=== PATIENT | male | born 1985 | race Caucasian/White ===

== ENCOUNTER 2022-05-26 08:07 | Emergency (ER) | payer SELFPAY ==
[2022-05-26 08:53] LABS: #Basophils 0.1 thou/uL (0.0-0.2); #Eosinphils 0.1 thou/uL (0.0-0.7); #Lymphocytes 3.1 thou/uL (1.20-3.40); #Monocytes 0.6 thou/uL (0.11-0.59); #Neutrophils 4.3 thou/uL (1.40-6.50); %Eosinophils 1.8 % (0.0-10.0); %Lymphocytes 37.4 % (21.0-51.0); %Monocytes 7.4 % (0.0-10.0); %Neutrophils 52.5 % (42.0-75.0); Hemoglobin 14.4 g/dL (14.0-18.0); Mean Corpuscular Hemoglobin 34.2 pg (27.0-31.0); Mean Platelet Volume 7.7 fL (7.4-10.4); Platelet Count 183 thou/uL (130-400); RBC Distribution Width 11.4 % (11.5-14.5); Red Blood Cell (RBC) Count 4.22 mill/uL (4.70-6.10); White Blood Cell (WBC) Count 8.2 thou/uL (4.8-10.8)
[2022-05-26] MEDS ORDERED: Iopamidol 370 76% 100 ML VIAL ONE (09:00)
[2022-05-26 09:02] LABS: ALT (SGPT) 37 U/L (8-55); AST (SGOT) 30 U/L (5-34); Albumin 4.1 g/dL (3.5-5.0); Alkaline Phosphatase 85 U/L (40-110); Anion Gap 15 mmol/L (10-20); BUN (Urea Nitrogen) 5 mg/dL (8.9-20.6); Bilirubin, Total 0.8 mg/dL (0.2-1.2); CK (CPK) 44 U/L (30-200); Calc. Creatinine Clearance 0 mL/min (70-130); Calcium 9.1 mg/dL (7.8-10.44); Carbon Dioxide 26 mmol/L (22-29); Chloride 98 mmol/L (98-107); Estimated GFR 118; Globulin 3.5 g/dL (2.4-3.5); Glucose 85 mg/dL (70-105); Lipase 108 U/L (8-78); Potassium 3.1 mmol/L (3.5-5.1); Protein, Total 7.6 g/dL (6.0-8.3); Sodium 136 mmol/L (136-145)
[2022-05-26 09:04] LABS: MDiff Complete? YES; Macrocytosis SLIGHT = 6-15 cells (100X) (0-5/hpf); Platelet Morphology Comment Appears Adequate
[2022-05-26] MEDS ORDERED: Dicyclomine 20 MG/2 ML VIAL ONE (09:59)
[2022-05-26] MEDS ORDERED: Lidocaine Viscous Sol 2% 15 ml UD Cup ONE (09:59)
[2022-05-26] MEDS ORDERED: Mag-Al Plus 1200 MG/1200 MG/120 MG/30 ML UDCUP ONE (09:59)
[2022-05-26] MEDS ORDERED: Sodium Chloride 0.9% 1,000 ML ONE (09:59)
== END 2022-05-26 10:40 | disposition home or self-care (01) ==
LOC: NAV ERS 08:07
DX: R10.13 Epigastric pain (principal); R10.11 Right upper quadrant pain; F17.210 Nicotine dependence, cigarettes, uncomplicated
CPT/HCPCS: 36415; 74177; 80053; 82550; 83690; 85025; 93005; 96372; J7050; Q9967

== ENCOUNTER 2022-08-05 06:20 | Emergency (ER) | payer SELFPAY ==
[2022-08-05] MEDS ORDERED: Morphine 4 MG/ML VIAL ONE ×2 (06:52→10:28)
[2022-08-05] MEDS ORDERED: Ondansetron PF 4 MG/2 ML Vial ONE (06:52)
[2022-08-05] MEDS ORDERED: Sodium Chloride 0.9% 1,000 ML ONE (06:52)
[2022-08-05 07:04] LABS: #Basophils 0.1 thou/uL (0.0-0.2); #Eosinphils 0.1 thou/uL (0.0-0.7); #Lymphocytes 1.7 thou/uL (1.20-3.40); #Monocytes 0.6 thou/uL (0.11-0.59); #Neutrophils 2.8 thou/uL (1.40-6.50); %Basophils 1.7 % (0.0-1.0); %Eosinophils 1.4 % (0.0-10.0); %Lymphocytes 32.8 % (21.0-51.0); %Monocytes 10.6 % (0.0-10.0); %Neutrophils 53.5 % (42.0-75.0); Hemoglobin 13.7 g/dL (14.0-18.0); Mean Corpuscular HGB CONC 33.7 g/dL (32.0-36.0); Mean Corpuscular Hemoglobin 34.4 pg (27.0-31.0); Mean Platelet Volume 6.4 fL (7.4-10.4); Platelet Count 293 thou/uL (130-400); Red Blood Cell (RBC) Count 3.98 mill/uL (4.70-6.10); White Blood Cell (WBC) Count 5.2 thou/uL (4.8-10.8)
[2022-08-05 07:11] LABS: ALT (SGPT) 36 U/L (8-55); AST (SGOT) 48 U/L (5-34); Albumin 3.6 g/dL (3.5-5.0); Alcohol 135 mg/dL (Less than 10); Alkaline Phosphatase 71 U/L (40-110); Anion Gap 18 mmol/L (10-20); BUN (Urea Nitrogen) 10 mg/dL (8.9-20.6); Bilirubin, Total 0.6 mg/dL (0.2-1.2); Calc. Creatinine Clearance 0 mL/min (70-130); Calcium 8.3 mg/dL (7.8-10.44); Carbon Dioxide 28 mmol/L (22-29); Chloride 99 mmol/L (98-107); Estimated GFR 80; Globulin 3.5 g/dL (2.4-3.5); Glucose 123 mg/dL (70-105); Lipase 148 U/L (8-78); Protein, Total 7.1 g/dL (6.0-8.3); Sodium 142 mmol/L (136-145)
[2022-08-05 07:16] LABS: Potassium 2.7 mmol/L (3.5-5.1)
[2022-08-05 07:18] LABS: Anisocytosis MODERATE=16-30 cells (100X) (0-5/hpf); Macrocytosis SLIGHT = 6-15 cells (100X) (0-5/hpf); Platelet Morphology Comment Appears Adequate; Polychromasia SLIGHT = 2-3 cells (100X) (0-2/hpf); Schistocytes SLIGHT = 2-5 cells (100X) (0-1/hpf); Target Cells SLIGHT = 2-5 cells (100X) (0-1/hpf)
[2022-08-05] MEDS ORDERED: Potassium Chloride 20 MEQ/100 ML PREMIX BAG ONE ×2 (07:34→12:00)
[2022-08-05 07:52] LABS: Bilirubin Negative (Negative); Blood, Urine Negative (Negative); Clarity Clear (Clear); Glucose, Urine (Dipstick) Negative (Negative); Ketone, Urine Negative (Negative); Leukocyte Negative (Negative); Nitrite Negative (Negative); Protein, Urine (Dipstick) Negative (Neg-Trace); Specific Gravity, Urine 1.025 (1.005-1.030); Urobilinogen 0.2 mg/dL (Less than 2); pH, Urine 5.5 (5.0-9.0)
[2022-08-05] MEDS ORDERED: Mag-Al Plus 1200 MG/1200 MG/120 MG/30 ML UDCUP ONE (07:58)
[2022-08-05] MEDS ORDERED: Lidocaine Viscous Sol 2% 15 ml UD Cup ONE (07:58)
[2022-08-05] MEDS ORDERED: Pantoprazole 40 MG VIAL ONE (08:34)
[2022-08-05 11:13] LABS: SARS-CoV-2 NAA Rapid Test Not Detected (NotDetected)
[2022-08-05] MEDS ORDERED: Ketorolac Tromethamine 30 MG/ML VIAL ONE (12:02)
== END 2022-08-05 12:50 | disposition short-term general hospital (02) ==
LOC: NAV ERS 06:20
DX: K85.90 Acute pancreatitis without necrosis or infection, unspecified (principal); K86.1 Other chronic pancreatitis; E87.6 Hypokalemia; Z20.822 Contact with and (suspected) exposure to COVID-19; F17.210 Nicotine dependence, cigarettes, uncomplicated
CPT/HCPCS: 80053; 80307; 81003; 83690; 85025; 93005; 96361; 96365; 96366; 96375; 96376; C9113; J1885; J2270; J2405; J3480; J7050; U0002

== ENCOUNTER 2022-12-30 11:41 | Emergency (ER) | payer OTHER, SELFPAY ==
[2022-12-30] MEDS ORDERED: Bacitracin 1 PK ONE (12:15)
== END 2022-12-30 12:32 | disposition home or self-care (01) ==
LOC: NAV ERS 11:41
DX: S81.851A Open bite, right lower leg, initial encounter (principal); F17.210 Nicotine dependence, cigarettes, uncomplicated; W54.0XXA Bitten by dog, initial encounter
CPT/HCPCS: 99283

== ENCOUNTER 2023-08-29 03:51 | Emergency (ER) | payer OTHER ==
[2023-08-29 04:11] LABS: White Blood Cell (WBC) Count 7.6 10x3/uL (4.8-10.8)
[2023-08-29 04:12] LABS: #Basophils 0.1 thou/uL (0.0-0.2); #Eosinphils 0.1 thou/uL (0.0-0.7); #Monocytes 0.5 thou/uL (0.11-0.59); #Neutrophils 3.9 thou/uL (1.40-6.50); %Basophils 1.4 % (0.0-1.0); %Eosinophils 1.3 % (0.0-10.0); %Lymphocytes 39.9 % (21.0-51.0); %Monocytes 6.1 % (0.0-10.0); %Neutrophils 51.3 % (42.0-75.0); Hematocrit 42.3 % (42.0-52.0); Manual Diff?? NO; Mean Corpuscular HGB CONC 35.4 g/dL (32.0-36.0); Mean Corpuscular Hemoglobin 36.1 pg (27.0-31.0); Mean Platelet Volume 6.9 fL (7.4-10.4); Platelet Count 268 10x3/uL (130-400); RBC Distribution Width 10.9 % (11.5-14.5); Red Blood Cell (RBC) Count 4.14 mill/uL (4.70-6.10)
[2023-08-29] MEDS ORDERED: Morphine 4 MG/ML VIAL ONE ×2 (04:22→05:04)
[2023-08-29] MEDS ORDERED: Sodium Chloride 0.9% 1,000 ML ONE ×2 (04:22→05:04)
[2023-08-29] MEDS ORDERED: Pantoprazole 40 MG VIAL ONE (04:22)
[2023-08-29] MEDS ORDERED: Ondansetron PF 4 MG/2 ML Vial ONE (04:22)
[2023-08-29 04:33] LABS: ALT (SGPT) 44 U/L (8-55); AST (SGOT) 72 U/L (5-34); Albumin 4.9 g/dL (3.5-5.0); Alkaline Phosphatase 106 U/L (40-110); Anion Gap 21 mmol/L (10-20); BUN (Urea Nitrogen) 5 mg/dL (8.9-20.6); Bilirubin, Total 0.5 mg/dL (0.2-1.2); Calc. Creatinine Clearance 0 mL/min (70-130); Calcium 9.9 mg/dL (7.8-10.44); Carbon Dioxide 21 mmol/L (22-29); Chloride 86 mmol/L (98-107); Estimated GFR 116; Globulin 4.4 g/dL (2.4-3.5); Glucose 89 mg/dL (70-105); Potassium 3.9 mmol/L (3.5-5.1); Protein, Total 9.3 g/dL (6.0-8.3); Sodium 124 mmol/L (136-145)
[2023-08-29 04:36] LABS: Alcohol 97.7 mg/dL (Less than 10); Bilirubin, Direct 0.2 mg/dL (0.1-0.3)
[2023-08-29] MEDS ORDERED: Mag-Al Plus 1200 MG/1200 MG/120 MG/30 ML UDCUP ONE (04:44)
[2023-08-29 05:23] LABS: Bilirubin Negative (Negative); Blood, Urine Trace (Negative); Clarity Clear (Clear); Glucose, Urine (Dipstick) Negative (Negative); Ketone, Urine Negative (Negative); Leukocyte Negative (Negative); Nitrite Negative (Negative); Protein, Urine (Dipstick) 30 mg/dL (Neg-Trace); Specific Gravity, Urine 1.015 (1.005-1.030); Urobilinogen 0.2 mg/dL (Less than 2); pH, Urine 5.5 (5.0-9.0)
[2023-08-29 05:24] LABS: RBC/HPF 0-3 HPF (0-3); Urine Culture Reflex No No
[2023-08-29 05:33] LABS: Amphetamine Not Detected (NotDetected); Barbiturates Screen Not Detected (NotDetected); Benzodiazepine Screen Not Detected (NotDetected); Cocaine Metabolite Screen Not Detected (NotDetected); Methadone Not Detected (NotDetected); Methamphetamine Not Detected (NotDetected); Opiate Screen Not Detected (NotDetected); Oxycodone Screen Not Detected (NotDetected); Phencyclidine (PCP) Not Detected (NotDetected); THC/Cannabinoid Screen Not Detected (NotDetected); Tricyclic Screen Not Detected (NotDetected)
[2023-08-29 07:24] LABS: Lactic Acid 1.5 mmol/L (0.5-2.2)
[2023-08-29] MEDS ORDERED: Ketorolac Tromethamine 30 MG/ML VIAL ONE (07:46)
[2023-08-29] MEDS ORDERED: Iopamidol 370 76% 100 ML VIAL ONE (09:00)
== END 2023-08-29 08:57 | disposition home or self-care (01) ==
LOC: NAV ERS 03:51
DX: K85.90 Acute pancreatitis without necrosis or infection, unspecified (principal); K29.20 Alcoholic gastritis without bleeding; Y90.4 Blood alcohol level of 80-99 mg/100 ml; I10 Essential (primary) hypertension; F17.210 Nicotine dependence, cigarettes, uncomplicated; B20 Human immunodeficiency virus [HIV] disease; Z79.899 Other long term (current) drug therapy
CPT/HCPCS: 74177; 80053; 80306; 80307; 81001; 82248; 83605; 83690; 85025; 96361; 96374; 96375; 96376; C9113; J1885; J2270; J2405; J7050; Q9967

== ENCOUNTER 2023-09-10 20:08 | Emergency (ER) | payer OTHER ==
[2023-09-10 23:04] LABS: ALT (SGPT) 26 U/L (8-55); AST (SGOT) 51 U/L (5-34); Albumin 4.4 g/dL (3.5-5.0); Alkaline Phosphatase 93 U/L (40-110); Anion Gap 25 mmol/L (10-20); BUN (Urea Nitrogen) 5 mg/dL (8.9-20.6); Bilirubin, Total 1.7 mg/dL (0.2-1.2); Calc. Creatinine Clearance 0 mL/min (70-130); Calcium 9.4 mg/dL (7.8-10.44); Carbon Dioxide 16 mmol/L (22-29); Chloride 85 mmol/L (98-107); Estimated GFR 112; Globulin 4.1 g/dL (2.4-3.5); Glucose 111 mg/dL (70-105); Protein, Total 8.5 g/dL (6.0-8.3); SARS-CoV-2 NAA Rapid Test Not Detected (NotDetected); Sodium 122 mmol/L (136-145)
[2023-09-10 23:05] LABS: Bilirubin Negative (Negative); Blood, Urine Negative (Negative); Clarity Clear (Clear); Glucose, Urine (Dipstick) Negative (Negative); Ketone, Urine Negative (Negative); Leukocyte Negative (Negative); Nitrite Negative (Negative); Protein, Urine (Dipstick) Negative (Neg-Trace); Urobilinogen 0.2 mg/dL (Less than 2)
[2023-09-10 23:06] LABS: Amphetamine Not Detected (NotDetected); Bacteria/HPF None Seen HPF (None Seen); Barbiturates Screen Not Detected (NotDetected); Benzodiazepine Screen Not Detected (NotDetected); Cocaine Metabolite Screen Not Detected (NotDetected); Methadone Not Detected (NotDetected); Methamphetamine Not Detected (NotDetected); Opiate Screen Not Detected (NotDetected); Oxycodone Screen Not Detected (NotDetected); Phencyclidine (PCP) Not Detected (NotDetected); RBC/HPF None Seen HPF (0-3); Specific Gravity, Urine 1.005 (1.002-1.036); Squamous Epithelial None Seen HPF (0-3); THC/Cannabinoid Screen Not Detected (NotDetected); Tricyclic Screen Not Detected (NotDetected); WBC/HPF None Seen HPF (0-3)
[2023-09-10 23:08] LABS: #Basophils 0.1 thou/uL (0.0-0.2); #Eosinphils 0.2 thou/uL (0.0-0.7); #Lymphocytes 3.3 thou/uL (1.20-3.40); #Monocytes 0.8 thou/uL (0.11-0.59); #Neutrophils 4.6 thou/uL (1.40-6.50); %Basophils 0.8 % (0.0-1.0); %Eosinophils 1.9 % (0.0-10.0); %Lymphocytes 36.4 % (21.0-51.0); %Monocytes 9.2 % (0.0-10.0); %Neutrophils 51.7 % (42.0-75.0); Hemoglobin 13.7 g/dL (14.0-18.0); Mean Corpuscular HGB CONC 35.1 g/dL (32.0-36.0); Mean Corpuscular Hemoglobin 35.7 pg (27.0-31.0); Mean Platelet Volume 6.5 fL (7.4-10.4); Platelet Count 267 10x3/uL (130-400); RBC Distribution Width 10.6 % (11.5-14.5); Red Blood Cell (RBC) Count 3.84 mill/uL (4.70-6.10)
== END 2023-09-10 23:09 | disposition left against medical advice (07) ==
LOC: NAV ERS 20:08
DX: J02.9 Acute pharyngitis, unspecified (principal); R05.9 Cough, unspecified; R11.0 Nausea; R09.89 Other specified symptoms and signs involving the circulatory and respiratory systems; I10 Essential (primary) hypertension; F17.200 Nicotine dependence, unspecified, uncomplicated; Z20.822 Contact with and (suspected) exposure to COVID-19
CPT/HCPCS: 80053; 80306; 81001; 84146; 85025; 87081; 87430; 99283; U0002

== ENCOUNTER 2023-11-05 05:15 | Emergency (ER) | payer BC, OTHER ==
[2023-11-05] MEDS ORDERED: Ondansetron PF 4 MG/2 ML Vial ONE (06:01)
[2023-11-05] MEDS ORDERED: Morphine 4 MG/ML VIAL ONE (06:01)
[2023-11-05] MEDS ORDERED: Sodium Chloride 0.9% 1,000 ML ONE (06:01)
[2023-11-05 06:05] LABS: #Basophils 0.1 thou/uL (0.0-0.2); #Eosinphils 0.2 thou/uL (0.0-0.7); #Lymphocytes 1.9 thou/uL (1.20-3.40); #Monocytes 0.4 thou/uL (0.11-0.59); #Neutrophils 4.2 thou/uL (1.40-6.50); %Basophils 1.6 % (0.0-1.0); %Eosinophils 2.3 % (0.0-10.0); %Lymphocytes 28.2 % (21.0-51.0); %Monocytes 6.5 % (0.0-10.0); %Neutrophils 61.4 % (42.0-75.0); Hematocrit 45.1 % (42.0-52.0); Hemoglobin 16.1 g/dL (14.0-18.0); Mean Corpuscular HGB CONC 35.7 g/dL (32.0-36.0); Mean Platelet Volume 6.4 fL (7.4-10.4); Platelet Count 281 10x3/uL (130-400); RBC Distribution Width 10.8 % (11.5-14.5); Red Blood Cell (RBC) Count 4.35 mill/uL (4.70-6.10); White Blood Cell (WBC) Count 6.8 10x3/uL (4.8-10.8)
[2023-11-05 06:22] LABS: ALT (SGPT) 38 U/L (8-55); AST (SGOT) 49 U/L (5-34); Albumin 4.5 g/dL (3.5-5.0); Alkaline Phosphatase 78 U/L (40-110); Anion Gap 17 mmol/L (10-20); BUN (Urea Nitrogen) 5 mg/dL (8.9-20.6); Bilirubin, Total 0.9 mg/dL (0.2-1.2); Calc. Creatinine Clearance 0 mL/min (70-130); Calcium 9.5 mg/dL (7.8-10.44); Carbon Dioxide 23 mmol/L (22-29); Chloride 93 mmol/L (98-107); Estimated GFR 114; Globulin 3.8 g/dL (2.4-3.5); Glucose 92 mg/dL (70-105); Lipase 931 U/L (8-78); Potassium 3.7 mmol/L (3.5-5.1); Protein, Total 8.3 g/dL (6.0-8.3); Sodium 129 mmol/L (136-145)
== END 2023-11-05 07:34 | disposition left against medical advice (07) ==
LOC: NAV ERS 05:15
DX: K85.90 Acute pancreatitis without necrosis or infection, unspecified (principal); E87.1 Hypo-osmolality and hyponatremia; I10 Essential (primary) hypertension; F17.210 Nicotine dependence, cigarettes, uncomplicated
CPT/HCPCS: 80053; 83690; 85025; 96361; 96374; 96375; J2270; J2405; J7050

== ENCOUNTER 2023-12-23 04:22 | Emergency (ER) | payer BC ==
[2023-12-23 04:49] LABS: #Basophils 0.1 thou/uL (0.0-0.2); #Eosinphils 0.2 thou/uL (0.0-0.7); #Monocytes 0.8 thou/uL (0.11-0.59); #Neutrophils 6.4 thou/uL (1.40-6.50); %Basophils 0.9 % (0.0-1.0); %Eosinophils 1.9 % (0.0-10.0); %Lymphocytes 21.1 % (21.0-51.0); %Monocytes 8.5 % (0.0-10.0); %Neutrophils 67.6 % (42.0-75.0); Hemoglobin 14.4 g/dL (14.0-18.0); Mean Corpuscular HGB CONC 35.2 g/dL (32.0-36.0); Mean Corpuscular Hemoglobin 36.5 pg (27.0-31.0); Mean Platelet Volume 6.4 fL (7.4-10.4); Platelet Count 259 10x3/uL (130-400); RBC Distribution Width 11.2 % (11.5-14.5); Red Blood Cell (RBC) Count 3.95 mill/uL (4.70-6.10); White Blood Cell (WBC) Count 9.5 10x3/uL (4.8-10.8)
[2023-12-23] MEDS ORDERED: Ondansetron PF 4 MG/2 ML Vial ONE (04:53)
[2023-12-23] MEDS ORDERED: Morphine 4 MG/ML VIAL ONE (04:53)
[2023-12-23] MEDS ORDERED: Sodium Chloride 0.9% 1,000 ML ONE (04:53)
[2023-12-23 04:59] LABS: ALT (SGPT) 53 U/L (8-55); AST (SGOT) 98 U/L (5-34); Albumin 4.3 g/dL (3.5-5.0); Alkaline Phosphatase 103 U/L (40-110); Anion Gap 15 mmol/L (10-20); BUN (Urea Nitrogen) 6 mg/dL (8.9-20.6); Bilirubin, Total 1.2 mg/dL (0.2-1.2); Calc. Creatinine Clearance 0 mL/min (70-130); Calcium 9.6 mg/dL (7.8-10.44); Carbon Dioxide 25 mmol/L (22-29); Chloride 96 mmol/L (98-107); Estimated GFR 114; Globulin 3.7 g/dL (2.4-3.5); Glucose 93 mg/dL (70-105); Lipase 47 U/L (8-78); Potassium 3.8 mmol/L (3.5-5.1); Sodium 132 mmol/L (136-145)
[2023-12-23] MEDS ORDERED: traMADol HCl 50 MG TAB ONE (05:53)
== END 2023-12-23 05:59 | disposition home or self-care (01) ==
LOC: NAV ERS 04:22
DX: K86.1 Other chronic pancreatitis (principal); F10.20 Alcohol dependence, uncomplicated; R10.13 Epigastric pain; I10 Essential (primary) hypertension; F17.210 Nicotine dependence, cigarettes, uncomplicated; B20 Human immunodeficiency virus [HIV] disease; Z55.6 Problems related to health literacy
CPT/HCPCS: 80053; 83690; 85025; 93005; 96374; J2270; J2405; J7050

== ENCOUNTER 2024-01-15 16:58 | Emergency (ER) | payer BC ==
[2024-01-15] MEDS ORDERED: Ondansetron PF 4 MG/2 ML Vial ONE (18:27)
[2024-01-15] MEDS ORDERED: Morphine 2 MG/ML VIAL ONE (18:27)
[2024-01-15 18:40] LABS: #Basophils 0.1 thou/uL (0.0-0.2); #Eosinphils 0.1 thou/uL (0.0-0.7); #Lymphocytes 1.6 thou/uL (1.20-3.40); #Monocytes 0.7 thou/uL (0.11-0.59); #Neutrophils 6.6 thou/uL (1.40-6.50); %Basophils 0.6 % (0.0-1.0); %Eosinophils 1.4 % (0.0-10.0); %Lymphocytes 17.6 % (21.0-51.0); %Monocytes 7.9 % (0.0-10.0); %Neutrophils 72.6 % (42.0-75.0); Hematocrit 41.1 % (42.0-52.0); Hemoglobin 14.2 g/dL (14.0-18.0); Macrocytosis SLIGHT = 6-15 cells (100X) (0-5/hpf); Manual Diff?? NO; Mean Corpuscular HGB CONC 34.6 g/dL (32.0-36.0); Mean Corpuscular Hemoglobin 35.7 pg (27.0-31.0); Mean Platelet Volume 6.1 fL (7.4-10.4); Platelet Count 259 10x3/uL (130-400); RBC Distribution Width 11.5 % (11.5-14.5); Red Blood Cell (RBC) Count 3.98 mill/uL (4.70-6.10)
[2024-01-15 18:51] LABS: ALT (SGPT) 22 U/L (8-55); AST (SGOT) 44 U/L (5-34); Albumin 4.3 g/dL (3.5-5.0); Alkaline Phosphatase 91 U/L (40-110); Anion Gap 16 mmol/L (10-20); BUN (Urea Nitrogen) 6 mg/dL (8.9-20.6); Bilirubin, Total 0.9 mg/dL (0.2-1.2); Calc. Creatinine Clearance 0 mL/min (70-130); Calcium 9.4 mg/dL (7.8-10.44); Carbon Dioxide 25 mmol/L (22-29); Chloride 94 mmol/L (98-107); Estimated GFR 118; Globulin 3.9 g/dL (2.4-3.5); Glucose 74 mg/dL (70-105); Lipase 729 U/L (8-78); Potassium 4.4 mmol/L (3.5-5.1); Protein, Total 8.2 g/dL (6.0-8.3); Sodium 131 mmol/L (136-145)
== END 2024-01-15 19:53 | disposition home or self-care (01) ==
LOC: NAV ERS 16:58
DX: K85.90 Acute pancreatitis without necrosis or infection, unspecified (principal); I10 Essential (primary) hypertension; E78.5 Hyperlipidemia, unspecified; F17.210 Nicotine dependence, cigarettes, uncomplicated
CPT/HCPCS: 80053; 83690; 85025; 96374; 96375; J2272; J2405

== ENCOUNTER 2024-04-01 18:49 | Emergency (ER) | payer BC ==
[2024-04-01] MEDS ORDERED: Pantoprazole 40 MG VIAL ONE (19:36)
[2024-04-01] MEDS ORDERED: Morphine 4 MG/ML VIAL ONE (19:36)
[2024-04-01] MEDS ORDERED: Sodium Chloride 0.9% 1,000 ML ONE (19:36)
[2024-04-01] MEDS ORDERED: Ondansetron PF 4 MG/2 ML Vial ONE (19:36)
[2024-04-01 19:38] LABS: #Basophils 0.1 thou/uL (0.0-0.2); #Eosinphils 0.2 thou/uL (0.0-0.7); #Lymphocytes 2.7 thou/uL (1.20-3.40); #Monocytes 0.6 thou/uL (0.11-0.59); #Neutrophils 5.6 thou/uL (1.40-6.50); %Basophils 0.9 % (0.0-1.0); %Eosinophils 2.2 % (0.0-10.0); %Lymphocytes 29.7 % (21.0-51.0); %Monocytes 6.2 % (0.0-10.0); %Neutrophils 61.1 % (42.0-75.0); Hematocrit 37.6 % (42.0-52.0); Hemoglobin 12.5 g/dL (14.0-18.0); Mean Corpuscular HGB CONC 33.2 g/dL (32.0-36.0); Mean Corpuscular Hemoglobin 33.7 pg (27.0-31.0); Mean Platelet Volume 6.1 fL (7.4-10.4); Platelet Count 199 10x3/uL (130-400); RBC Distribution Width 11.2 % (11.5-14.5); White Blood Cell (WBC) Count 9.2 10x3/uL (4.8-10.8)
[2024-04-01 19:51] LABS: ALT (SGPT) 52 U/L (8-55); AST (SGOT) 88 U/L (5-34); Albumin 4.1 g/dL (3.5-5.0); Alkaline Phosphatase 115 U/L (40-110); Anion Gap 18 mmol/L (10-20); BUN (Urea Nitrogen) 4 mg/dL (8.9-20.6); Bilirubin, Total 0.5 mg/dL (0.2-1.2); Calc. Creatinine Clearance 0 mL/min (70-130); Calcium 8.8 mg/dL (7.8-10.44); Carbon Dioxide 20 mmol/L (22-29); Chloride 91 mmol/L (98-107); Estimated GFR 120; Globulin 3.7 g/dL (2.4-3.5); Glucose 93 mg/dL (70-105); Lipase 321 U/L (8-78); Potassium 4.1 mmol/L (3.5-5.1); Protein, Total 7.8 g/dL (6.0-8.3); Sodium 125 mmol/L (136-145)
[2024-04-01 19:53] LABS: Bilirubin Negative (Negative); Blood, Urine Negative (Negative); Clarity Clear (Clear); Glucose, Urine (Dipstick) Negative (Negative); Ketone, Urine Negative (Negative); Leukocyte Negative (Negative); Nitrite Negative (Negative); Protein, Urine (Dipstick) Negative (Neg-Trace); Urobilinogen 0.2 mg/dL (Less than 2); pH, Urine 5.5 (5.0-9.0)
[2024-04-01 20:08] LABS: CAUTI Indications for Culture Pelvic or flank pain
[2024-04-01 20:10] LABS: Urine Culture Reflex No No
[2024-04-01 20:11] LABS: WBC/HPF None Seen HPF (0-3)
[2024-04-01 20:17] LABS: Specific Gravity, Urine 1.003 (1.002-1.036)
[2024-04-01] MEDS ORDERED: Promethazine HCl 25 MG/ML VIAL ONE (20:36)
[2024-04-01] MEDS ORDERED: Morphine 2 MG/ML VIAL ONE (20:36)
== END 2024-04-01 22:16 | disposition home or self-care (01) ==
LOC: NAV ERS 18:49
DX: K85.90 Acute pancreatitis without necrosis or infection, unspecified (principal); K86.1 Other chronic pancreatitis; I10 Essential (primary) hypertension; F17.210 Nicotine dependence, cigarettes, uncomplicated
CPT/HCPCS: 80053; 80307; 81001; 83690; 85025; 96374; 96375; 96376; C9113; J2270; J2272; J2405; J2550; J7050

== ENCOUNTER 2024-04-04 17:53 | Emergency (ER) | payer BC ==
[2024-04-04] MEDS ORDERED: Morphine 4 MG/ML VIAL ONE (18:22)
[2024-04-04] MEDS ORDERED: Ondansetron PF 4 MG/2 ML Vial ONE (18:22)
[2024-04-04 19:18] LABS: ALT (SGPT) 28 U/L (8-55); AST (SGOT) 37 U/L (5-34); Alkaline Phosphatase 102 U/L (40-110); Anion Gap 17 mmol/L (10-20); BUN (Urea Nitrogen) Less than 4 mg/dL (8.9-20.6); Bilirubin, Total 1.2 mg/dL (0.2-1.2); Calc. Creatinine Clearance 0 mL/min (70-130); Calcium 9.5 mg/dL (7.8-10.44); Carbon Dioxide 24 mmol/L (22-29); Chloride 93 mmol/L (98-107); Estimated GFR 116; Glucose 103 mg/dL (70-105); Lipase 602 U/L (8-78); Potassium 3.6 mmol/L (3.5-5.1); Sodium 130 mmol/L (136-145)
[2024-04-04 19:29] LABS: #Basophils 0.1 thou/uL (0.0-0.2); #Eosinphils 0.4 thou/uL (0.0-0.7); #Lymphocytes 1.5 thou/uL (1.20-3.40); #Neutrophils 6.4 thou/uL (1.40-6.50); %Basophils 0.7 % (0.0-1.0); %Eosinophils 4.4 % (0.0-10.0); %Lymphocytes 16.2 % (21.0-51.0); %Monocytes 10.2 % (0.0-10.0); %Neutrophils 68.5 % (42.0-75.0); Hematocrit 41.7 % (42.0-52.0); Hemoglobin 13.9 g/dL (14.0-18.0); Mean Corpuscular HGB CONC 33.4 g/dL (32.0-36.0); Mean Corpuscular Hemoglobin 34.1 pg (27.0-31.0); Mean Platelet Volume 6.6 fL (7.4-10.4); Platelet Count 233 10x3/uL (130-400); RBC Distribution Width 11.2 % (11.5-14.5); Red Blood Cell (RBC) Count 4.09 mill/uL (4.70-6.10); White Blood Cell (WBC) Count 9.4 10x3/uL (4.8-10.8)
[2024-04-04 19:42] LABS: Platelet Adequacy Comment Appears Adequate
[2024-04-04 19:56] LABS: MDiff Complete? YES
== END 2024-04-04 19:50 | disposition home or self-care (01) ==
LOC: NAV ERS 17:53
DX: K86.1 Other chronic pancreatitis (principal); I10 Essential (primary) hypertension; F17.210 Nicotine dependence, cigarettes, uncomplicated
CPT/HCPCS: 80053; 80307; 83690; 85025; 96374; 96375; J2270; J2405

== ENCOUNTER 2024-05-24 08:12 | Emergency (ER) | payer BC ==
[2024-05-24] MEDS ORDERED: Ondansetron PF 4 MG/2 ML Vial ONE (08:33)
[2024-05-24] MEDS ORDERED: Sodium Chloride 0.9% 1,000 ML ONE ×2 (08:33→09:38)
[2024-05-24] MEDS ORDERED: Morphine 4 MG/ML VIAL ONE (08:33)
[2024-05-24 08:53] LABS: Bilirubin Negative (Negative); Blood, Urine Trace (Negative); Clarity Clear (Clear); Glucose, Urine (Dipstick) Negative (Negative); Ketone, Urine Negative (Negative); Leukocyte Negative (Negative); Nitrite Negative (Negative); Protein, Urine (Dipstick) Negative (Neg-Trace); Urobilinogen 0.2 mg/dL (Less than 2); pH, Urine 5.5 (5.0-9.0)
[2024-05-24 09:00] LABS: #Basophils 0.1 thou/uL (0.0-0.2); #Eosinphils 0.3 thou/uL (0.0-0.7); #Monocytes 1.2 thou/uL (0.11-0.59); #Neutrophils 7.3 thou/uL (1.40-6.50); %Basophils 1.1 % (0.0-1.0); %Eosinophils 2.8 % (0.0-10.0); %Monocytes 10.8 % (0.0-10.0); %Neutrophils 67.3 % (42.0-75.0); Hematocrit 39.2 % (42.0-52.0); Hemoglobin 13.4 g/dL (14.0-18.0); Mean Corpuscular HGB CONC 34.1 g/dL (32.0-36.0); Mean Corpuscular Hemoglobin 33.6 pg (27.0-31.0); Mean Corpuscular Volume 98.6 fl (78.0-98.0); Mean Platelet Volume 5.7 fL (7.4-10.4); Platelet Count 253 10x3/uL (130-400); RBC Distribution Width 11.2 % (11.5-14.5); Red Blood Cell (RBC) Count 3.98 mill/uL (4.70-6.10); White Blood Cell (WBC) Count 10.8 10x3/uL (4.8-10.8)
[2024-05-24 09:02] LABS: CAUTI Indications for Culture Pelvic or flank pain; RBC/HPF None Seen HPF (0-3); Squamous Epithelial 0-3 HPF (0-3); Urine Culture Reflex No No; WBC/HPF None Seen HPF (0-3)
[2024-05-24 09:07] LABS: ALT (SGPT) 25 U/L (8-55); AST (SGOT) 34 U/L (5-34); Alkaline Phosphatase 105 U/L (40-110); Anion Gap 16 mmol/L (10-20); BUN (Urea Nitrogen) 4 mg/dL (8.9-20.6); Bilirubin, Total 0.9 mg/dL (0.2-1.2); Calc. Creatinine Clearance 0 mL/min (70-130); Calcium 9.1 mg/dL (7.8-10.44); Carbon Dioxide 20 mmol/L (22-29); Chloride 92 mmol/L (98-107); Estimated GFR 117; Globulin 3.9 g/dL (2.4-3.5); Glucose 86 mg/dL (70-105); Lipase 86 U/L (8-78); Potassium 3.9 mmol/L (3.5-5.1); Protein, Total 7.9 g/dL (6.0-8.3); Sodium 124 mmol/L (136-145)
[2024-05-24] MEDS ORDERED: Ketorolac Tromethamine 30 MG (1 mL) VIAL ONE (11:27)
[2024-05-24 11:34] LABS: Anion Gap 11 mmol/L (10-20); BUN (Urea Nitrogen) Less than 4 mg/dL (8.9-20.6); Calc. Creatinine Clearance 0 mL/min (70-130); Carbon Dioxide 20 mmol/L (22-29); Chloride 100 mmol/L (98-107); Potassium 4.1 mmol/L (3.5-5.1); Sodium 127 mmol/L (136-145)
[2024-05-24 11:35] LABS: Calcium 7.8 mg/dL (7.8-10.44); Estimated GFR 119; Glucose 80 mg/dL (70-105)
== END 2024-05-24 12:08 | disposition home or self-care (01) ==
LOC: NAV ERS 08:12
DX: K86.1 Other chronic pancreatitis (principal); E87.1 Hypo-osmolality and hyponatremia; I10 Essential (primary) hypertension; B20 Human immunodeficiency virus [HIV] disease; F17.210 Nicotine dependence, cigarettes, uncomplicated; Z79.899 Other long term (current) drug therapy
CPT/HCPCS: 80053; 81001; 83690; 85025; 96361; 96374; 96375; J1885; J2270; J2405; J7050

== ENCOUNTER 2024-05-29 23:23 | Emergency (ER) | payer BC ==
[2024-05-29 23:49] LABS: #Basophils 0.1 thou/uL (0.0-0.2); #Eosinphils 0.4 thou/uL (0.0-0.7); #Monocytes 0.8 thou/uL (0.11-0.59); #Neutrophils 7.7 thou/uL (1.40-6.50); %Basophils 0.8 % (0.0-1.0); %Eosinophils 3.6 % (0.0-10.0); %Monocytes 7.2 % (0.0-10.0); %Neutrophils 70.4 % (42.0-75.0); Hemoglobin 12.7 g/dL (14.0-18.0); Mean Corpuscular HGB CONC 36.4 g/dL (32.0-36.0); Mean Corpuscular Hemoglobin 35.5 pg (27.0-31.0); Mean Corpuscular Volume 97.5 fl (78.0-98.0); Mean Platelet Volume 5.7 fL (7.4-10.4); Platelet Count 285 10x3/uL (130-400); RBC Distribution Width 11.3 % (11.5-14.5); Red Blood Cell (RBC) Count 3.59 mill/uL (4.70-6.10); White Blood Cell (WBC) Count 10.9 10x3/uL (4.8-10.8)
[2024-05-30] MEDS ORDERED: Morphine 4 MG/ML VIAL ONE
[2024-05-30] MEDS ORDERED: Ondansetron PF 4 MG/2 ML Vial ONE (00:01)
[2024-05-30 00:06] LABS: ALT (SGPT) 12 U/L (8-55); AST (SGOT) 19 U/L (5-34); Albumin 3.3 g/dL (3.5-5.0); Alkaline Phosphatase 108 U/L (40-110); Anion Gap 12 mmol/L (10-20); BUN (Urea Nitrogen) Less than 4 mg/dL (8.9-20.6); Bilirubin, Total 0.5 mg/dL (0.2-1.2); Calc. Creatinine Clearance 0 mL/min (70-130); Calcium 8.7 mg/dL (7.8-10.44); Carbon Dioxide 24 mmol/L (22-29); Chloride 88 mmol/L (98-107); Estimated GFR 120; Globulin 3.7 g/dL (2.4-3.5); Glucose 104 mg/dL (70-105); Lipase 997 U/L (8-78); Potassium 3.4 mmol/L (3.5-5.1); Sodium 121 mmol/L (136-145)
== END 2024-05-30 01:04 | disposition short-term general hospital (02) ==
LOC: NAV ERS 23:23
DX: K85.90 Acute pancreatitis without necrosis or infection, unspecified (principal); K86.1 Other chronic pancreatitis; E87.1 Hypo-osmolality and hyponatremia; I10 Essential (primary) hypertension; F17.210 Nicotine dependence, cigarettes, uncomplicated; R11.2 Nausea with vomiting, unspecified
CPT/HCPCS: 80053; 83690; 85025; 96374; 96375; J2270; J2405

== ENCOUNTER 2024-06-03 09:53 | Emergency (ER) | payer BC ==
[2024-06-03] MEDS ORDERED: Ondansetron PF 4 MG/2 ML Vial ONE (10:47)
[2024-06-03] MEDS ORDERED: Morphine 4 MG/ML VIAL ONE (10:47)
[2024-06-03 11:11] LABS: #Basophils 0.1 thou/uL (0.0-0.2); #Eosinphils 0.4 thou/uL (0.0-0.7); #Lymphocytes 1.6 thou/uL (1.20-3.40); #Monocytes 0.8 thou/uL (0.11-0.59); #Neutrophils 4.5 thou/uL (1.40-6.50); %Basophils 1.6 % (0.0-1.0); %Eosinophils 5.4 % (0.0-10.0); %Lymphocytes 21.6 % (21.0-51.0); %Monocytes 10.6 % (0.0-10.0); %Neutrophils 60.8 % (42.0-75.0); Hematocrit 35.8 % (42.0-52.0); Hemoglobin 11.7 g/dL (14.0-18.0); Mean Corpuscular HGB CONC 32.6 g/dL (32.0-36.0); Mean Corpuscular Hemoglobin 33.3 pg (27.0-31.0); Mean Platelet Volume 5.4 fL (7.4-10.4); Platelet Count 400 10x3/uL (130-400); RBC Distribution Width 11.8 % (11.5-14.5); Red Blood Cell (RBC) Count 3.51 mill/uL (4.70-6.10); White Blood Cell (WBC) Count 7.5 10x3/uL (4.8-10.8)
[2024-06-03 11:16] LABS: ALT (SGPT) 17 U/L (8-55); AST (SGOT) 29 U/L (5-34); Albumin 3.2 g/dL (3.5-5.0); Alkaline Phosphatase 99 U/L (40-110); Anion Gap 13 mmol/L (10-20); BUN (Urea Nitrogen) 4 mg/dL (8.9-20.6); Bilirubin, Total 0.5 mg/dL (0.2-1.2); Calc. Creatinine Clearance 0 mL/min (70-130); Calcium 9.3 mg/dL (7.8-10.44); Carbon Dioxide 29 mmol/L (22-29); Chloride 98 mmol/L (98-107); Estimated GFR 116; Globulin 3.8 g/dL (2.4-3.5); Glucose 93 mg/dL (70-105); Lipase 459 U/L (8-78); Magnesium 1.5 mg/dL (1.6-2.6); Potassium 3.9 mmol/L (3.5-5.1); Sodium 136 mmol/L (136-145)
== END 2024-06-03 12:05 | disposition home or self-care (01) ==
LOC: NAV ERS 09:53
DX: K85.90 Acute pancreatitis without necrosis or infection, unspecified (principal); R11.0 Nausea; F17.210 Nicotine dependence, cigarettes, uncomplicated; E78.5 Hyperlipidemia, unspecified; Z79.899 Other long term (current) drug therapy
CPT/HCPCS: 80053; 83690; 83735; 85025; 96374; 96375; J2270; J2405

== ENCOUNTER 2024-06-11 20:44 | Emergency (ER) | payer BC ==
[2024-06-11] MEDS ORDERED: Sucralfate 1 GM TAB ONE (21:00)
[2024-06-11 21:08] LABS: #Basophils 0.1 thou/uL (0.0-0.2); #Eosinphils 0.4 thou/uL (0.0-0.7); #Lymphocytes 2.9 thou/uL (1.20-3.40); #Monocytes 0.8 thou/uL (0.11-0.59); #Neutrophils 6.1 thou/uL (1.40-6.50); %Basophils 0.9 % (0.0-1.0); %Eosinophils 3.7 % (0.0-10.0); %Lymphocytes 28.7 % (21.0-51.0); %Monocytes 7.9 % (0.0-10.0); Hematocrit 38.2 % (42.0-52.0); Hemoglobin 12.5 g/dL (14.0-18.0); Mean Corpuscular HGB CONC 32.6 g/dL (32.0-36.0); Mean Corpuscular Hemoglobin 32.7 pg (27.0-31.0); Mean Platelet Volume 5.3 fL (7.4-10.4); Platelet Count 524 10x3/uL (130-400); RBC Distribution Width 11.8 % (11.5-14.5); White Blood Cell (WBC) Count 10.3 10x3/uL (4.8-10.8)
[2024-06-11 21:22] LABS: Anion Gap 18 mmol/L (10-20); BUN (Urea Nitrogen) 4 mg/dL (8.9-20.6); Calc. Creatinine Clearance 0 mL/min (70-130); Calcium 9.2 mg/dL (7.8-10.44); Carbon Dioxide 20 mmol/L (22-29); Chloride 94 mmol/L (98-107); Estimated GFR 114; Glucose 105 mg/dL (70-105); Potassium 4.1 mmol/L (3.5-5.1); Sodium 128 mmol/L (136-145)
[2024-06-11 21:36] LABS: Bilirubin Negative (Negative); Blood, Urine Negative (Negative); Clarity Clear (Clear); Glucose, Urine (Dipstick) Negative (Negative); Ketone, Urine Negative (Negative); Leukocyte Negative (Negative); Nitrite Negative (Negative); Protein, Urine (Dipstick) Negative (Neg-Trace); Urobilinogen 0.2 mg/dL (Less than 2)
[2024-06-11 21:42] LABS: Bacteria/HPF None Seen HPF (None Seen); CAUTI Indications for Culture Pelvic or flank pain; RBC/HPF None Seen HPF (0-3); Squamous Epithelial None Seen HPF (0-3); Urine Culture Reflex No No; WBC/HPF None Seen HPF (0-3)
== END 2024-06-11 22:15 | disposition home or self-care (01) ==
LOC: NAV ERS 20:44
DX: K92.1 Melena (principal); E78.5 Hyperlipidemia, unspecified; B20 Human immunodeficiency virus [HIV] disease; K85.90 Acute pancreatitis without necrosis or infection, unspecified; K27.9 Peptic ulcer, site unspecified, unspecified as acute or chronic, without hemorrhage or perforation; K62.0 Anal polyp; F17.210 Nicotine dependence, cigarettes, uncomplicated
CPT/HCPCS: 36415; 80048; 81001; 85025; 99284

== ENCOUNTER 2024-06-16 16:53 | Emergency (ER) | payer BC ==
[2024-06-16 17:11] LABS: #Basophils 0.1 thou/uL (0.0-0.2); #Eosinphils 0.3 thou/uL (0.0-0.7); #Lymphocytes 2.3 thou/uL (1.20-3.40); #Monocytes 0.7 thou/uL (0.11-0.59); #Neutrophils 6.6 thou/uL (1.40-6.50); %Basophils 0.7 % (0.0-1.0); %Eosinophils 2.5 % (0.0-10.0); %Lymphocytes 23.3 % (21.0-51.0); %Monocytes 7.5 % (0.0-10.0); Hematocrit 39.6 % (42.0-52.0); Hemoglobin 12.9 g/dL (14.0-18.0); Mean Corpuscular HGB CONC 32.5 g/dL (32.0-36.0); Mean Corpuscular Volume 98.7 fl (78.0-98.0); Mean Platelet Volume 5.4 fL (7.4-10.4); Platelet Count 465 10x3/uL (130-400); RBC Distribution Width 11.4 % (11.5-14.5); Red Blood Cell (RBC) Count 4.01 mill/uL (4.70-6.10)
[2024-06-16 17:41] LABS: Anion Gap 14 mmol/L (10-20); BUN (Urea Nitrogen) 4 mg/dL (8.9-20.6); Calc. Creatinine Clearance 0 mL/min (70-130); Carbon Dioxide 20 mmol/L (22-29); Chloride 95 mmol/L (98-107); Potassium 3.9 mmol/L (3.5-5.1); Sodium 125 mmol/L (136-145)
[2024-06-16 17:42] LABS: ALT (SGPT) 15 U/L (8-55); AST (SGOT) 16 U/L (5-34); Alkaline Phosphatase 93 U/L (40-110); Bilirubin, Total 0.3 mg/dL (0.2-1.2); Estimated GFR 114; Globulin 4.1 g/dL (2.4-3.5); Glucose 124 mg/dL (70-105); Lipase 119 U/L (8-78); Protein, Total 7.8 g/dL (6.0-8.3)
[2024-06-16 17:45] LABS: Albumin 3.7 g/dL (3.5-5.0)
== END 2024-06-16 18:30 | disposition home or self-care (01) ==
LOC: NAV ERS 16:53
DX: E87.1 Hypo-osmolality and hyponatremia (principal); K86.1 Other chronic pancreatitis
CPT/HCPCS: 80053; 83690; 85025; 99284

== ENCOUNTER 2024-06-18 12:11 | Emergency (ER) | payer BC ==
[2024-06-18] MEDS ORDERED: Sodium Chloride 0.9% 1,000 ML ONE (14:42)
[2024-06-18] MEDS ORDERED: Morphine 4 MG/ML VIAL ONE (14:42)
[2024-06-18] MEDS ORDERED: Ondansetron PF 4 MG/2 ML Vial ONE (14:42)
[2024-06-18 15:02] LABS: Bilirubin Negative (Negative); Blood, Urine Negative (Negative); Clarity Clear (Clear); Glucose, Urine (Dipstick) Negative (Negative); Ketone, Urine Negative (Negative); Leukocyte Negative (Negative); Nitrite Negative (Negative); Protein, Urine (Dipstick) Negative (Neg-Trace); Specific Gravity, Urine 1.003 (1.002-1.036); Urobilinogen 0.2 mg/dL (Less than 2); pH, Urine 5.5 (5.0-9.0)
[2024-06-18 15:06] LABS: #Basophils 0.1 thou/uL (0.0-0.2); #Eosinphils 0.3 thou/uL (0.0-0.7); #Lymphocytes 2.3 thou/uL (1.20-3.40); #Monocytes 0.7 thou/uL (0.11-0.59); #Neutrophils 6.7 thou/uL (1.40-6.50); %Basophils 0.8 % (0.0-1.0); %Neutrophils 66.2 % (42.0-75.0); Hematocrit 38.5 % (42.0-52.0); Hemoglobin 12.8 g/dL (14.0-18.0); Mean Corpuscular HGB CONC 33.2 g/dL (32.0-36.0); Mean Corpuscular Hemoglobin 32.7 pg (27.0-31.0); Mean Corpuscular Volume 98.3 fl (78.0-98.0); Mean Platelet Volume 5.6 fL (7.4-10.4); Platelet Count 435 10x3/uL (130-400); RBC Distribution Width 11.4 % (11.5-14.5); Red Blood Cell (RBC) Count 3.92 mill/uL (4.70-6.10); White Blood Cell (WBC) Count 10.2 10x3/uL (4.8-10.8)
[2024-06-18 15:20] LABS: ALT (SGPT) 16 U/L (8-55); AST (SGOT) 21 U/L (5-34); Albumin 3.8 g/dL (3.5-5.0); Alkaline Phosphatase 100 U/L (40-110); Anion Gap 15 mmol/L (10-20); BUN (Urea Nitrogen) 4 mg/dL (8.9-20.6); Bilirubin, Total 0.3 mg/dL (0.2-1.2); Calc. Creatinine Clearance 0 mL/min (70-130); Calcium 9.5 mg/dL (7.8-10.44); Carbon Dioxide 23 mmol/L (22-29); Chloride 95 mmol/L (98-107); Estimated GFR 114; Globulin 3.9 g/dL (2.4-3.5); Glucose 95 mg/dL (70-105); Lipase 138 U/L (8-78); Potassium 4.6 mmol/L (3.5-5.1); Protein, Total 7.7 g/dL (6.0-8.3); Sodium 128 mmol/L (136-145)
[2024-06-18] MEDS ORDERED: HYDROcodone/Acetaminophen 5/325 mg Tablet ONE (18:10)
== END 2024-06-18 18:33 | disposition home or self-care (01) ==
LOC: NAV ERS 12:11
DX: K86.1 Other chronic pancreatitis (principal); E87.1 Hypo-osmolality and hyponatremia; F17.210 Nicotine dependence, cigarettes, uncomplicated; B20 Human immunodeficiency virus [HIV] disease; Z79.899 Other long term (current) drug therapy
CPT/HCPCS: 80053; 81001; 83690; 85025; 96374; 96375; J2272; J2405; J7030